=== PATIENT | female | born 1975 | race American Indian/Alaskan Native ===

== ENCOUNTER 2016-09-29 08:47 | Emergency (ER) | payer BC ==
[2016-09-29] MEDS ORDERED: NACL 0.9% 1000 ML 1,000 ML IV ONE (09:04)
[2016-09-29 09:41] LABS: Basophils % (Auto) 0.3 % (0.0-1.8); Hematocrit 38.8 % (30.3-42.9); Hemoglobin 12.2 gm/dl (10.1-14.3); Mean Corpuscular HGB Conc 31 % (30-34); Mean Corpuscular Hemoglobin 22 pg (28-32); Mean Corpuscular Volume 69 fl (79-97); Platelet Count 237 K/mm3 (140-440); Red Blood Count 5.64 M/mm3 (3.65-5.03); Red Cell Distribution Width 16.5 % (13.2-15.2)
[2016-09-29 09:53] LABS: Alanine Aminotransferase 13 units/L (7-56); Albumin/Globulin Ratio 1.2 %; Alkaline Phosphatase 46 units/L (35-129); Anion Gap 18 mmol/L; BUN/Creatinine Ratio 12.85; Blood Urea Nitrogen 9 mg/dL (7-17); Calcium 8.9 mg/dL (8.4-10.2); Carbon Dioxide 26 mmol/L (22-30); Chloride 95.7 mmol/L (98-107); Glucose 115 mg/dL (65-100); Lipase 20 units/L (13-60); Potassium 3.6 mmol/L (3.6-5.0); Sodium 136 mmol/L (137-145); Total Protein 7.3 g/dL (6.3-8.2)
[2016-09-29 10:18] LABS: INR 1.02 (0.87-1.13)
[2016-09-29 10:19] LABS: Partial Thromboplastin Time 29.2 Sec. (24.2-36.6)
[2016-09-29] MEDS ORDERED: TYLENOL PO ONE (21:30)
[2016-09-29] MEDS ORDERED: PROTONIX IV ONE (21:30)
[2016-09-29 22:56] VITALS: BP 158/96
[2016-09-29] MEDS ORDERED: NORMODYNE IV ONE (23:09)
--- NOTE | 2016-09-29 23:13 | Emergency Department Report ---
HPI - General Chief Complaint: GI Bleed Time Seen by Provider: 09/29/16 21:24 - HPI HPI: The patient is a 41-year-old female who presents for evaluation of abdominal pain. The patient reports generalized abdominal pain for the past one day, exudates in severity, crampy in quality, on and off, exacerbated with defecation. She also reports associated loose watery stools mixed with bright red blood, for same duration as her pain. The patient denies fever, chills, night sweats, dark tarry stool, dysuria, flank pain, genital discharge, inability to pass flatus, hemoptysis, hematuria, recurrent epistaxis, easy bruising or bleeding, hematemesis, or blood thinner use. ED Past Medical Hx - Past Medical History Previous Medical History?: Yes Hx Hypertension: Yes - Surgical History Past Surgical History?: No - Social History Smoking Status: Never Smoker Substance Use Type: Alcohol, Prescribed - Medications Home Medications: Home Medications Medication Instructions Recorded Confirmed Last Taken Type Acetaminophen/Codeine [Tylenol #3] 1 tab PO Q6H PRN #10 tab 09/29/16 Unknown Rx Lisinopril/Hydrochlorothiazide 1 tab PO QDAY 09/29/16 09/29/16 09/28/16 History [Zestoretic 20-12.5 mg] Omeprazole Magnesium [PriLOSEC Otc] 20 mg PO QDAY #20 tablet. 09/29/16 Unknown Rx Pantoprazole [Protonix TAB] 20 mg PO QDAY #20 tablet. 09/29/16 Unknown Rx ED Review of Systems ROS: Stated complaint: ABD PAIN,BLOODY STOOL Other details as noted in HPI Constitutional: denies: fever ENT: denies: throat or neck pain Respiratory: denies: cough, shortness of breath Cardiovascular: denies: chest pain Endocrine: denies unexplained weight loss or gain Gastrointestinal: reports abdominal pain, nausea Genitourinary: denies: dysuria Musculoskeletal: denies: leg swelling Skin: denies: rash Neurological: denies: headache Hematological/Lymphatic: denies: easy bleeding or easy bruising Psych: denies sadness or hopelessness Physical Exam - Physical Exam Vital Signs: Vital Signs 09/29/16 09/29/16 09/29/16 09:01 17:50 22:24 Temperature 98.3 F 98.7 F Pulse Rate 81 74 Respiratory 20 20 Rate Blood Pressure 146/104 159/111 Blood Pressure [Right] O2 Sat by Pulse 96 99 96 Oximetry 09/29/16 09/29/16 09/29/16 22:30 22:40 22:48 Temperature Pulse Rate 74 74 81 Respiratory 15 15 18 Rate Blood Pressure 158/96 158/96 Blood Pressure 155/106 [Right] O2 Sat by Pulse 99 97 98 Oximetry Physical Exam: General: well-nourished, well-developed, no acute distress Head: Normocephalic, atraumatic Eyes: normal sclera ENT: Mucous membranes are pale and dry Neck: No neck stiffness, no cervical adenopathy Respiratory: Breath sounds equal bilaterally, no wheezing, rales, or rhonchi Cardio: S1 and S2 present, no murmurs, rubs, gallops, capillary refill is delayed Abdomen: Normoactive bowel sounds, soft abdomen, LLQ tenderness present, no rigidity, no guarding, no rebound tenderness Musc: No pitting edema Skin: No rash Neuro: no facial drooping, normal speech Psych: Normal affect ED Course Vital Signs 09/29/16 09/29/16 09/29/16 09:01 17:50 22:24 Temperature 98.3 F 98.7 F Pulse Rate 81 74 Respiratory 20 20 Rate Blood Pressure 146/104 159/111 Blood Pressure [Right] O2 Sat by Pulse 96 99 96 Oximetry 09/29/16 09/29/16 09/29/16 22:30 22:40 22:48 Temperature Pulse Rate 74 74 81 Respiratory 15 15 18 Rate Blood Pressure 158/96 158/96 Blood Pressure 155/106 [Right] O2 Sat by Pulse 99 97 98 Oximetry ED Medical Decision Making - Lab Data Result diagrams: 09/29/16 09:10 09/29/16 09:10 - Medical Decision Making The patient was seen and examined by myself. The patient is placed on a gas or water meter installer and continuous pulse ox. On initial evaluation, the patient was found to be in no distress. IV access is established and the patient given 1 L normal saline fluid bolus for treatment of dehydration, Tylenol for pain, and Protonix for treatment of GI bleeding. Evaluation orders were placed. Lab results are reassuring including non-concerning levels of RBC, hemoglobin, hematocrit, coags, and negative test. The patient was reevaluated and reported that their symptoms were improved. As the patient has not concerning levels of RBC, hemoglobin, hematocrit, with normal vital signs, and there is no evidence of severe bleeding requiring transfusion or other emergent management at this time, the patient is stable for discharge with outpatient follow-up. The patient is given follow-up and return instructions. The patient expressed understanding and agreed with the plan. The patient is discharged in stable condition. Critical care attestation.: If time is entered above; I have spent that time in minutes in the direct care of this critically ill patient, excluding procedure time. ED Disposition Clinical Impression: Hematochezia, Acute abdominal pain in left lower quadrant Disposition: DISCHARGED TO HOME OR SELFCARE Is pt being admited?: No Does the pt Need Aspirin: No Condition: Stable Instructions: Gastrointestinal Bleeding (ED), Acute Abdominal Pain (ED), Hypertension (ED) Prescriptions: Acetaminophen/Codeine [Tylenol #3] 1 tab PO Q6H PRN #10 tab PRN Reason: Pain Omeprazole Magnesium [PriLOSEC Otc] 20 mg PO QDAY #20 tablet. Pantoprazole [Protonix TAB] 20 mg PO QDAY #20 tablet. Referrals: PRIMARY CARE, [Primary Care Provider] - 3-5 Days Forms: Accompanied Note Time of Disposition: 23:08
[2016-09-30 00:46] LABS: Bilirubin,Urine NEG (Negative); Blood,Urine NEG (Negative); Ketones,Urine NEG (Negative); Leukocyte Esterase,Urine NEG (Negative); Mucus,Urine 1+ /HPF; Nitrite,Urine NEG (Negative); Urobilinogen,Urine < 2.0 mg/dL (<2.0)
== END 2016-09-29 23:30 | disposition home or self-care (01) ==
LOC: ED 08:47
DX: K92.1 Melena (principal); R10.32 Left lower quadrant pain; I10 Essential (primary) hypertension
CPT/HCPCS: 36415; 80053; 81001; 81025; 83690; 84703; 85025; 85610; 85730; 86850; 86900; 86901; 93005; 93010; 96374; 99284; C9113